=== PATIENT | female | born 2000 | race African-American/Black ===

== ENCOUNTER 2023-11-26 14:26 | Emergency (ER) | payer OTHER, SELFPAY ==
--- NOTE | ~2023-11-26 | XR_ITS ---
EXAMINATION: XR ankle RT min 3V DATE: 11/26/2023 15:15 INDICATION: Medial right ankle pain. TECHNIQUE: 4 views of right ankle were obtained. COMPARISON: None. FINDINGS: Bone alignment is normal. No fracture. Joint spaces are normal. IMPRESSION: 1. No fracture. Reviewed, dictated and finalized at location E. IMPRESSION: 1. No fracture.
[2023-11-26 14:43] VITALS: BP 167/117; RESP 18; O2SAT 100
--- NOTE | 2023-11-26 15:25 | ED.LOWEXIN ---
HPI - Extremity Injury (Lower) General Chief Complaint: Extremity Injury, Lower Stated Complaint: right foot injury Time Seen by Provider: 11/26/23 14:45 Source: patient Mode of arrival: ambulatory Limitations: no limitations History of Present Illness HPI Narrative: This is a 23 year old female that presents to the ER for right ankle pain. Reports an injury last night where she twisted her ankle. She has had pain in the lateral ankle since. Reports decreased ROM due to pain. Denies numbness. Related Data Allergies Allergy/AdvReac Type Severity Reaction Status Date / Time No Known Allergies Allergy Verified 11/26/23 14:26 Review of Systems Review of Systems: CONSTITUTIONAL: Denies fever MUSCULOSKELETAL: Reports joint pain, and myalgia. NEUROLOGIC: Denies numbness, or weakness. All systems reviewed & are unremarkable except as noted in HPI and below PMFSH Past Medical History Medical History (Updated 11/26/23 @ 15:33 by Karie Cook PA-C) History of hypertension Social History Social History (Updated 11/26/23 @ 15:28 by Karie Cook PA-C) Substance use: never Exam Narrative: GENERAL: Well-appearing, well-nourished, and in no acute distress. HEAD: Normocephalic, atraumatic. EYES: EOMI. EXTREMITIES: Normal range of motion. No edema or obvious deformity. Normal DP pulse. Normal sensation SKIN: Warm, dry, no rash. NEURO: No focal deficits. Alert and oriented x3. PSYCH: Normal mood and affect Course Course Emergency Course: Patient updated on workup and agrees with plan of care Vital Signs Vital signs: Vital Signs Respiratory Rate 18 11/26/23 14:43 Blood Pressure 167/117 H 11/26/23 14:43 Pulse Oximetry 100 11/26/23 14:43 Oxygen Delivery Room Air 11/26/23 14:43 Respiratory Rate 18 11/26/23 14:43 Blood Pressure 167/117 H 11/26/23 14:43 Pulse Oximetry 100 11/26/23 14:43 Oxygen Delivery Room Air 11/26/23 14:43 MDM - Extremity Injury (Lower) MDM Narrative Medical decision making narrative: Patient presents to the ER for right ankle pain after an injury last night. She is neurovascularly intact. Right ankle x-ray is without acute osseous abnormalities. patient placed in Main wrap and given crutches. Instructed on further care of ankle sprain. She is to follow up with primary provider. She was given warnings to return to the ER Differential Diagnosis Differential diagnosis: Likely ankle sprain and strain and ankle fracture Imaging Data Radiologist's impression: ITS Impressions Ankle X-Ray 11/26/23 15:24 IMPRESSION: 1. No fracture. Critical Care Time Critical Care Time Critical Care Time: No Discharge Plan Discharge Clinical Impression: Ankle sprain and strain Patient Disposition: Home, Self-Care Condition: Stable Instructions: Ankle Sprain (ED) Additional Instructions: Return to the ER if you experience fever, redness and swelling of your extremity, numbness or any other symptoms that are concerning to you Wear MAIN wrap and use crutches. No weight on the affected leg until able to bear weight without pain. Ice and elevate extremity. Pain medication as needed and directed. Follow up with your doctor for further care. Follow-up/Referrals: PHYSICIAN,[facility] [Primary Care Provider] - Yossi Pittman MD [Physician] -
[2023-11-26] MEDS: ACETAMINOPHEN 500 MG TABLET 1000 MG PO (15:26)
== END 2023-11-26 16:01 | disposition home or self-care (01) ==
LOC: ANHED 15:45
PROVIDERS: Emergency Provider Physician Assistant
DX: S93.401A Sprain of unspecified ligament of right ankle, initial encounter (principal); I10 Essential (primary) hypertension; X50.0XXA Overexertion from strenuous movement or load, initial encounter
CPT/HCPCS: 73610; 99283; A9270